=== PATIENT | male | born 1935 | race Asian ===

== ENCOUNTER 2016-01-17 10:26 | Inpatient (IN) | payer OTHER ==
[~2016-01-17 10:26] MED LIST: ACID CONTROL150 MG OR; ARICEPT5 MG OR; CARAFATE1 GM OR; CARDURA4 MG PO; CELEXA10 MG PO; CEPH500C20 PO; CLARITIN10 M1 PO; CLON0.5T36 PO; COLC0.6T6 PO; CYAN10009 IM; CYANOCOBALAM1000 MCG IM; ESCI10TA OR; FLUT0.05 NAS; GABA100C2 PO; GAS RELIEF80 MG PO; GLIP10TA55 PO; INSU100I2 SC; LEVAQUIN500 MG OR; LEVEMIR SC; LEXAPRO5 MG OR; LIPITOR10 MG PO; LISI10TA11 PO; LOMOTIL2.5 MG PO; LOPRESSOR50 MG OR; LORTAB1 TAB PO; MACROBID100 MG OR; MECL25TA84 PO; MECLIZINE25 M1 PO; METAMUCIL0.52 GM OR; METOCLOPRAM5 MG OR; METOPROLOL25 M1 PO; NAMENDA5 MG OR; NOVOLIN R U-1001 ML IJ; OMEP20CA PO; PANT40TA PO; PRILOSEC OTC20 MG PO; PROAIR HFA IN; Q-TUSSIN100 MG/5 M PO; RISP0.25 PO; ROBITUSSIN OR; SIMV10TA PO; TAMS0.4C PO; TRIM800T12 PO; VESICARE5 MG PO; VITAMIN B-121000 MC1 SC
== END 2016-02-17 08:00 | disposition still patient (30) ==
LOC: PAVC 10:26
PROVIDERS: ADMIT Family Medicine
DX: Z51.89 Encounter for other specified aftercare (principal)

== ENCOUNTER 2016-02-17 09:00 | Inpatient (IN) | payer OTHER ==
[2016-02-24] MEDS ORDERED: ARTIFI TEARS OPTH (19:54)
[2016-02-24] MEDS ORDERED: CARDURA4 MG PO (19:57)
[2016-02-24] MEDS ORDERED: TRELSTAR IM (19:58)
[2016-02-24] MEDS ORDERED: POLY3350 PO (19:59)
== END 2016-03-19 12:38 | disposition still patient (30) ==
LOC: PAVC 09:00
PROVIDERS: ADMIT Family Medicine
DX: M62.81 Muscle weakness (generalized) (principal); R41.82 Altered mental status, unspecified; R51 Headache; R13.10 Dysphagia, unspecified; R26.89 Other abnormalities of gait and mobility; W19.XXXD Unspecified fall, subsequent encounter; F03.90 Unspecified dementia, unspecified severity, without behavioral disturbance, psychotic disturbance, mood disturbance, and anxiety; G91.9 Hydrocephalus, unspecified
CPT/HCPCS: J1815

== ENCOUNTER 2016-02-24 17:10 | Outpatient (CLI) | payer OTHER ==
[2016-02-24 17:27] LABS: PLATELET COUNT 174 K/uL (142-355)
[2016-02-24 18:02] LABS: POTASSIUM 3.7 mmol/L (3.6-5.2)
[2016-02-24] MEDS ORDERED: ARTIFI TEARS OPTH (19:54)
[2016-02-24] MEDS ORDERED: CARDURA4 MG PO (19:57)
[2016-02-24] MEDS ORDERED: TRELSTAR IM (19:58)
[2016-02-24] MEDS ORDERED: POLY3350 PO (19:59)
== END 2016-02-24 19:03 | disposition home or self-care (01) ==
LOC: LAB 17:10
PROVIDERS: Family Medicine
DX: R06.02 Shortness of breath (principal); R41.82 Altered mental status, unspecified; R00.0 Tachycardia, unspecified
CPT/HCPCS: 36415; 80053; 81000; 85027

== ENCOUNTER 2016-02-24 19:15 | Inpatient (IN) | payer OTHER ==
[~2016-02-24] VITALS: Ht 167.6 cm; Wt 83.0 kg
[2016-02-24 19:35] VITALS: BP 141/107; TEMP 98.3
[2016-02-24] MEDS ORDERED: ARTIFI TEARS OPTH (19:54)
[2016-02-24] MEDS ORDERED: CARDURA4 MG PO (19:57)
[2016-02-24] MEDS ORDERED: TRELSTAR IM (19:58)
[2016-02-24] MEDS ORDERED: POLY3350 PO (19:59)
[2016-02-25] VITALS (8 sets, daily range): BP systolic 123–170; BP diastolic 81–98; TEMP 98.7–99.4; Ht 167.6 cm; Wt 83.0 kg
[2016-02-25 09:10] LABS: PLATELET COUNT 166 K/uL (142-355)
[2016-02-25 09:25] LABS: POTASSIUM 3.5 mmol/L (3.6-5.2)
[2016-02-26] VITALS (9 sets, daily range): BP systolic 115–139; BP diastolic 83–98; TEMP 97.3–99.1
[2016-02-26 06:35] LABS: PLATELET COUNT 149 K/uL (142-355)
[2016-02-27] VITALS: BP 133/87; TEMP 98.9
[2016-02-27 04:00] VITALS: BP 112/73; TEMP 99
[2016-02-27 05:59] LABS: POTASSIUM 4.7 mmol/L (3.6-5.2)
[2016-02-27 08:00] VITALS: BP 125/88; TEMP 99
[2016-02-27 08:26] LABS: PLATELET COUNT 154 K/uL (142-355)
[2016-02-27 12:00] VITALS: BP 139/90; TEMP 99.2
[2016-02-27 16:00] VITALS: BP 105/75; TEMP 98.9
[2016-02-27 20:00] VITALS: BP 124/63; TEMP 98.6
[2016-02-28 00:04] VITALS: BP 129/81; TEMP 97.8
[2016-02-28 04:00] VITALS: BP 124/79; TEMP 97.8
[2016-02-28 07:29] LABS: PLATELET COUNT 186 K/uL (142-355)
[2016-02-28 07:40] LABS: POTASSIUM 3.8 mmol/L (3.6-5.2)
[2016-02-28 08:00] VITALS: BP 109/75; TEMP 97.9
[2016-02-28 12:00] VITALS: BP 110/70; TEMP 98
== END 2016-02-28 15:10 | DRG 948 ==
LOC: ED 19:15 → MED/SURG 22:21
PROVIDERS: Emergency Medicine; ADMIT Specialist
DX: R41.82 Altered mental status, unspecified (principal); G91.9 Hydrocephalus, unspecified; Z91.81 History of falling; R51 Headache; I10 Essential (primary) hypertension; E11.9 Type 2 diabetes mellitus without complications; I25.10 Atherosclerotic heart disease of native coronary artery without angina pectoris; F03.90 Unspecified dementia, unspecified severity, without behavioral disturbance, psychotic disturbance, mood disturbance, and anxiety; F32.9 Major depressive disorder, single episode, unspecified; R06.02 Shortness of breath; R00.0 Tachycardia, unspecified
CPT/HCPCS: 36415; 80048; 80053; 81000; 82306; 82607; 82747; 83735; 84100; 85027; 85651; 86039; 94760; 99283; 99284; J3475; J3480

== ENCOUNTER 2016-03-19 13:05 | Inpatient (IN) | payer OTHER ==
[~2016-03-19 13:05] MED LIST changes: +ARTIFI TEARS OPTH; +POLY3350 PO; +TRELSTAR IM
[2016-04-13 13:12] LABS: PLATELET COUNT 161 K/uL (142-355)
[2016-04-13 13:28] LABS: POTASSIUM 3.7 mmol/L (3.6-5.2)
== END 2016-04-16 13:23 | disposition still patient (30) ==
LOC: PAVC 13:05
PROVIDERS: ADMIT Family Medicine
DX: M62.81 Muscle weakness (generalized) (principal); R13.10 Dysphagia, unspecified; R26.89 Other abnormalities of gait and mobility; F03.90 Unspecified dementia, unspecified severity, without behavioral disturbance, psychotic disturbance, mood disturbance, and anxiety; G91.9 Hydrocephalus, unspecified
CPT/HCPCS: 36415; 80053; 81000; 84550; 85027

== ENCOUNTER 2016-03-24 04:55 | Outpatient (CLI) | payer OTHER ==
[2016-03-24 05:27] LABS: PLATELET COUNT 136 K/uL (142-355)
[2016-03-24 05:39] LABS: POTASSIUM 3.5 mmol/L (3.6-5.2)
== END 2016-03-24 20:02 | disposition home or self-care (01) ==
LOC: LAB 04:55
PROVIDERS: Internal Medicine
DX: E11.9 Type 2 diabetes mellitus without complications (principal); Z79.899 Other long term (current) drug therapy; I50.9 Heart failure, unspecified; I25.10 Atherosclerotic heart disease of native coronary artery without angina pectoris
CPT/HCPCS: 36415; 80053; 80061; 82607; 83036; 85027

== ENCOUNTER 2016-04-02 04:27 | Outpatient (CLI) | payer OTHER | END 2016-04-02 05:27 | disposition home or self-care (01) | LOC: LAB 04:27 | DX: M10.9 Gout, unspecified (principal) | CPT/HCPCS: 36415; 84550 ==

== ENCOUNTER 2016-04-16 13:47 | Inpatient (IN) | payer OTHER | END 2016-05-17 08:15 | disposition still patient (30) | LOC: PAVC 13:47 | PROVIDERS: ADMIT Family Medicine | DX: Z51.89 Encounter for other specified aftercare (principal) ==

== ENCOUNTER 2016-05-17 08:53 | Inpatient (IN) | payer OTHER | END 2016-06-16 11:00 | disposition still patient (30) | LOC: PAVC 08:53 | PROVIDERS: ADMIT Family Medicine | DX: Z51.89 Encounter for other specified aftercare (principal) ==

== ENCOUNTER 2016-06-15 09:47 | Outpatient (CLI) | payer OTHER | END 2016-06-15 19:46 | disposition home or self-care (01) | LOC: LAB 09:47 | DX: Z16.24 Resistance to multiple antibiotics (principal) | CPT/HCPCS: 87081 ==

== ENCOUNTER 2016-06-16 12:10 | Inpatient (IN) | payer OTHER | END 2016-07-17 10:48 | disposition still patient (30) | LOC: PAVC 12:10 | PROVIDERS: ADMIT Family Medicine | DX: Z51.89 Encounter for other specified aftercare (principal) ==

== ENCOUNTER 2016-06-18 05:17 | Outpatient (CLI) | payer OTHER | END 2016-06-18 19:08 | disposition home or self-care (01) | LOC: LAB 05:17 | DX: E11.9 Type 2 diabetes mellitus without complications (principal) | CPT/HCPCS: 36415; 83036 ==

== ENCOUNTER 2016-07-09 15:49 | Outpatient (CLI) | payer OTHER ==
[2016-07-09 16:09] LABS: PLATELET COUNT 137 K/uL (142-355)
[2016-07-09 16:57] LABS: POTASSIUM 4.2 mmol/L (3.6-5.2)
== END 2016-07-09 19:25 | disposition home or self-care (01) ==
LOC: LAB 15:49
PROVIDERS: Family Medicine
DX: I10 Essential (primary) hypertension (principal)
CPT/HCPCS: 36415; 80048; 85007; 85027

== ENCOUNTER 2016-07-10 14:48 | Outpatient (CLI) | payer OTHER | END 2016-07-10 19:51 | disposition home or self-care (01) | LOC: LAB 14:48 | DX: R42 Dizziness and giddiness (principal); D64.9 Anemia, unspecified | CPT/HCPCS: 36415; 82728; 83540; 83550 ==

== ENCOUNTER 2016-07-17 11:10 | Inpatient (IN) | payer OTHER | END 2016-08-16 16:11 | disposition still patient (30) | LOC: PAVC 11:10 | PROVIDERS: ADMIT Family Medicine | DX: Z51.89 Encounter for other specified aftercare (principal) ==

== ENCOUNTER 2016-07-26 19:58 | Outpatient (CLI) | payer OTHER | END 2016-07-26 21:00 | LOC: LAB 19:58 | DX: R73.09 Other abnormal glucose (principal) | CPT/HCPCS: 82947 ==

== ENCOUNTER 2016-07-27 10:52 | Outpatient (CLI) | payer OTHER | END 2016-07-27 19:07 | disposition home or self-care (01) | LOC: LAB 10:52 | DX: R82.99 Other abnormal findings in urine (principal) | CPT/HCPCS: 81000 ==

== ENCOUNTER 2016-07-30 21:06 | Outpatient (CLI) | payer OTHER | END 2016-07-30 22:00 | disposition home or self-care (01) | LOC: LAB 21:06 | DX: E11.69 Type 2 diabetes mellitus with other specified complication (principal) | CPT/HCPCS: 82947 ==

== ENCOUNTER 2016-08-13 20:28 | Outpatient (CLI) | payer OTHER | END 2016-08-13 22:00 | LOC: LAB 20:28 | DX: E11.9 Type 2 diabetes mellitus without complications (principal) | CPT/HCPCS: 36415; 82947 ==

== ENCOUNTER 2016-08-16 16:42 | Inpatient (IN) | payer OTHER | END 2016-09-16 13:02 | disposition still patient (30) | LOC: PAVC 16:42 | PROVIDERS: ADMIT Family Medicine | DX: Z51.89 Encounter for other specified aftercare (principal) ==

== ENCOUNTER 2016-08-16 21:09 | Outpatient (CLI) | payer OTHER | END 2016-08-16 22:15 | disposition home or self-care (01) | LOC: LAB 21:09 | DX: E11.9 Type 2 diabetes mellitus without complications (principal) | CPT/HCPCS: 36415; 82947 ==

== ENCOUNTER 2016-09-05 16:50 | Outpatient (CLI) | payer OTHER ==
[2016-09-05 17:33] LABS: PLATELET COUNT 144 K/uL (142-355)
[2016-09-05 17:36] LABS: POTASSIUM 3.8 mmol/L (3.6-5.2)
== END 2016-09-05 17:50 | disposition home or self-care (01) ==
LOC: LAB 16:50
PROVIDERS: Family Medicine
DX: R41.0 Disorientation, unspecified (principal)
CPT/HCPCS: 36415; 80053; 81000; 85027

== ENCOUNTER 2016-09-16 14:18 | Inpatient (IN) | payer OTHER | END 2016-10-17 10:01 | disposition still patient (30) | LOC: PAVC 14:18 | PROVIDERS: ADMIT Family Medicine | DX: Z51.89 Encounter for other specified aftercare (principal) ==

== ENCOUNTER 2016-09-19 04:33 | Outpatient (CLI) | payer OTHER ==
[2016-09-19 05:15] LABS: PLATELET COUNT 190 K/uL (142-355)
[2016-09-19 05:36] LABS: POTASSIUM 3.7 mmol/L (3.6-5.2)
== END 2016-09-19 05:40 | disposition home or self-care (01) ==
LOC: LAB 04:33
PROVIDERS: Family Medicine
DX: I10 Essential (primary) hypertension (principal); K21.9 Gastro-esophageal reflux disease without esophagitis; E11.69 Type 2 diabetes mellitus with other specified complication
CPT/HCPCS: 36415; 80053; 80061; 82607; 85027

== ENCOUNTER 2016-09-24 12:13 | Outpatient (CLI) | payer OTHER | END 2016-09-24 13:15 | disposition home or self-care (01) | LOC: LAB 12:13 | DX: E11.9 Type 2 diabetes mellitus without complications (principal) | CPT/HCPCS: 36415; 83036 ==

== ENCOUNTER 2016-10-17 10:39 | Inpatient (IN) | payer OTHER | END 2016-11-16 09:38 | disposition still patient (30) | LOC: PAVC 10:39 | PROVIDERS: ADMIT Family Medicine | DX: Z51.89 Encounter for other specified aftercare (principal) ==

== ENCOUNTER 2016-11-16 10:05 | Inpatient (IN) | payer OTHER | END 2016-12-17 14:21 | disposition still patient (30) | LOC: PAVC 10:05 | PROVIDERS: ADMIT Family Medicine ==

== ENCOUNTER 2016-11-20 14:01 | Outpatient (CLI) | payer OTHER | END 2016-11-20 19:26 | disposition home or self-care (01) | LOC: LAB 14:01 | DX: N40.0 Benign prostatic hyperplasia without lower urinary tract symptoms (principal); C61 Malignant neoplasm of prostate | CPT/HCPCS: 84153 ==

== ENCOUNTER 2016-12-03 12:35 | Outpatient (CLI) | payer OTHER | END 2016-12-03 19:47 | disposition home or self-care (01) | LOC: LAB 12:35 | DX: M10.9 Gout, unspecified (principal) | CPT/HCPCS: 36415; 84550 ==

== ENCOUNTER 2016-12-17 15:22 | Inpatient (IN) | payer OTHER | END 2016-12-22 08:00 | disposition E | LOC: PAVC 15:22 | PROVIDERS: ADMIT Family Medicine ==

== ENCOUNTER 2016-12-18 04:53 | Outpatient (CLI) | payer OTHER | END 2016-12-18 05:55 | disposition home or self-care (01) | LOC: LAB 04:53 | DX: E11.40 Type 2 diabetes mellitus with diabetic neuropathy, unspecified (principal) | CPT/HCPCS: 83036 ==

== ENCOUNTER 2016-12-22 05:50 | Outpatient (CLI) | payer OTHER | END 2016-12-22 05:51 | disposition short-term general hospital (02) | LOC: AMB 05:50 | DX: I46.9 Cardiac arrest, cause unspecified (principal) | CPT/HCPCS: A0425; A0433 ==

== ENCOUNTER 2016-12-22 06:01 | Emergency (ER) | payer OTHER ==
[~2016-12-22] VITALS: Ht 167.6 cm; Wt 78.0 kg
[2016-12-22 05:51] VITALS: BP 0/0; TEMP 97.8
== END 2016-12-22 08:00 | disposition expired ==
LOC: ED 06:01
DX: I46.9 Cardiac arrest, cause unspecified (principal)